=== PATIENT | female | born 1970 | race Caucasian/White ===

== ENCOUNTER 2016-12-15 10:56 | Day surgery (SDC) | payer OTHER ==
[~2016-12-15] VITALS: Ht 157.5 cm; Wt 68.0 kg
[~2016-12-15 10:56] MED LIST: ACETAMINOPHEN P1 TA2 PO; CALCIUM 600+D31 TA2 PO; CENTRUM ULTRA WOMENS PO; CLONAZEP ODT1 MG PO; FERROUS SULF325 M2 PO; GABAPENTIN400 M2 PO; HORMONE PATCH; HORMONE PO; MILK THISTLE250 MG PO; MONTELUKAST SOD10 MG PO; NORCO1 TA1 PO; PRILOSEC20 MG PO; PRILOSEC40 MG PO; PROTONIX40 M2 PO; PROVENTIL IN; RISPERDAL3 M1 PO; SIMVASTATIN40 MG PO; STRATTERA; STRATTERA80 MG PO; VISTARIL50 MG PO; VOLTAREN1%GEL TOP; WELLBUTRIN XL PO
[2016-12-15 13:56] VITALS: BP 163/80
== END 2016-12-15 13:45 | disposition home or self-care (01) | DRG 392 ==
LOC: ENDO 10:56 → ORM 13:00 → ENDO 13:45 → ORM 17:05 → ENDO 17:05 → ORM 17:35
PROVIDERS: ATTEND Internal Medicine Gastroenterology
PROC: 0DJD8ZZ Inspection of Lower Intestinal Tract, Via Natural or Artificial Opening Endoscopic (ICD-10-PCS; principal; 2016-12-15)
DX: K59.00 Constipation, unspecified (principal); K31.84 Gastroparesis; R11.2 Nausea with vomiting, unspecified; K64.8 Other hemorrhoids; K64.4 Residual hemorrhoidal skin tags; K29.70 Gastritis, unspecified, without bleeding; R13.10 Dysphagia, unspecified; K21.9 Gastro-esophageal reflux disease without esophagitis; Z86.010 Personal history of colon polyps

== ENCOUNTER 2022-12-27 09:04 | Day surgery (SDC) | payer OTHER ==
[~2022-12-27] VITALS: Ht 157.5 cm; Wt 63.5 kg
[~2022-12-27 09:04] MED LIST changes: +COZAAR25 MG PO; +FISH OIL1000 M1 PO; +HYDROXYZINE PO; +LATUDA60 MG PO; +LINZESS290 MCG PO; +RITALIN20 MG PO; +TRAZODONE50 MG PO; +[UNRECOGNIZED DRUG - OTHER] PO
[2022-12-27 10:29] VITALS: BP 138/75
== END 2022-12-27 10:50 | disposition home or self-care (01) ==
LOC: ORM 09:04
PROVIDERS: ATTEND Physical Medicine & Rehabilitation
DX: G89.4 Chronic pain syndrome (principal); M54.16 Radiculopathy, lumbar region; M62.830 Muscle spasm of back; M54.12 Radiculopathy, cervical region; V09.3 Pedestrian injured in unspecified traffic accident
CPT/HCPCS: J1100; Q9967

== ENCOUNTER 2023-05-23 07:10 | Day surgery (SDC) | payer OTHER ==
[~2023-05-23] VITALS: Ht 157.5 cm; Wt 69.4 kg
[2023-05-23] MEDS ORDERED: TRAZODONE50 MG PO (08:20)
[2023-05-23] MEDS ORDERED: XANAX0.5 MG PO (08:21)
[2023-05-23 10:09] VITALS: BP 152/89
== END 2023-05-23 10:20 | disposition home or self-care (01) ==
LOC: ORM 07:10
PROVIDERS: ATTEND Physical Medicine & Rehabilitation Pain Medicine
DX: M54.16 Radiculopathy, lumbar region (principal); G89.4 Chronic pain syndrome; M62.830 Muscle spasm of back; M54.12 Radiculopathy, cervical region
CPT/HCPCS: J1100; Q9967

== ENCOUNTER 2023-08-08 10:44 | Emergency (ER) | payer OTHER ==
[~2023-08-08] VITALS: Ht 157.5 cm; Wt 77.1 kg
[2023-08-08] VITALS (9 sets, daily range): BP systolic 126–178; BP diastolic 74–111
[~2023-08-08 10:44] MED LIST changes: +XANAX0.5 MG PO
== END 2023-08-08 13:05 | disposition home or self-care (01) ==
LOC: ED 10:44
DX: S39.012A Strain of muscle, fascia and tendon of lower back, initial encounter (principal); W18.39XA Other fall on same level, initial encounter; Y92.59 Other trade areas as the place of occurrence of the external cause; Y99.2 Volunteer activity